=== PATIENT | female | born 1930 | race Caucasian/White ===

== ENCOUNTER → 2016-09-21 | Outpatient (CLI) | payer MEDICARE, OTHER | LOC: GMAB 15:00 | PROVIDERS: ATTEND Family Medicine | DX: D50.8 Other iron deficiency anemias (principal); E53.8 Deficiency of other specified B group vitamins; R41.9 Unspecified symptoms and signs involving cognitive functions and awareness; F03.91 Unspecified dementia, unspecified severity, with behavioral disturbance ==

== ENCOUNTER 2016-10-13 20:44 | Inpatient (IN) | payer MEDICARE, OTHER ==
[2016-10-13] MEDS ORDERED: NEOMYCIN-BACITRACIN-POLYMYXIN 0.9 GM UD TOP ONE (21:02)
--- NOTE | 2016-10-13 22:07 | ED.PDOC ---
History of Present Illness - General Chief Complaint: Neuro Symptoms/Deficits Stated Complaint: seizure Time Seen by Provider: 10/13/16 20:57 Source: patient, family, EMS, long term records Exam Limitations: clinical condition - History of Present Illness Initial Comments: Patient presents after having a witnessed seizure at the long term just before arrival. She was found unresponsive with tonic-clinic movements. Patient has a distant history of seizure activity with the last one being more than 5 years ago. The patient's daughter says that she has never been on anit- epileptics. Patient currently takes alprozolam daily, has a fentanyl patch, and two prescribed alcoholic drinks per day. She has routinely received these medications. No other complaints. Timing/Duration: 1 hour Severity: moderate Worsening Factors: nothing Associated Symptoms: denies symptoms Allergies/Adverse Reactions: Allergies Iodine Allergy (Mild, Verified 10/13/15 14:37) Rash Home Medications: Ambulatory Orders Allopurinol [Zyloprim] 100 mg PO DAILY 10/27/14 Amlodipine Besylate [Norvasc] 10 mg PO DAILY 10/27/14 Aspirin 325 mg PO QD 10/27/14 B-Complex Vitamins [Vitamin B Complex] 1 tab PO DAILY 10/27/14 Benazepril HCl 20 mg PO DAILY 10/27/14 Ferrous Gluconate [Fergon] 325 mg PO DAILY 10/27/14 Latanoprost 1 drop BOTH_EYES BEDTIME 10/27/14 Timolol Maleate (Ophth) [Timolol Maleate] 1 drop BOTH_EYES BID 10/27/14 Review of Systems - Review of Systems Constitutional: States: no symptoms reported EENTM: States: no symptoms reported Respiratory: States: no symptoms reported Cardiology: States: no symptoms reported Gastrointestinal/Abdominal: States: no symptoms reported Genitourinary: States: no symptoms reported Musculoskeletal: States: no symptoms reported Skin: States: no symptoms reported Neurological: States: see HPI Endocrine: States: no symptoms reported Hematologic/Lymphatic: States: no symptoms reported Past Medical History (General) - Patient Medical History Hx Seizures: No Hx Stroke: No Hx Asthma: No Hx of COPD: No Hx Cardiac Disorders: Yes Hx Congestive Heart Failure: Yes Hx Pacemaker: No Hx Hypertension: Yes Hx Diabetes: No Hx Gastroesophageal Reflux: No Hx Cancer: No Hx of HIV: No Hx Hepatitis C: No Hx MRSA: No - Vaccination History Hx Tetanus, Diphtheria Vaccination: No Hx Influenza Vaccination: No Hx Pneumococcal Vaccination: No - Social History Hx Tobacco Use: No Hx Alcohol Use: Yes Hx Substance Use: No Hx Substance Use Treatment: No Hx Depression: No Hx Physical Abuse: No Hx Emotional Abuse: No - Activities of Daily Living Half-Way/Assisted Living (if applicable):: [facility] - Female History Patient is a Female of Child Bearing Age (10 -59 yrs old): No Family Medical History - Family History Mother Family History: Unknown Living Status: Age at (years of age): 73 Hx Family Hypertension: Yes Hx Cardiac Disease: Yes Physical Exam - Physical Exam General Appearance: Other - confused but conversational Eye Exam: bilateral normal Ears, Nose, Throat: normal ENT inspection Neck: non-tender, full range of motion, supple Respiratory: lungs clear Cardiovascular/Chest: regular rate, rhythm Gastrointestinal/Abdominal: normal bowel sounds, non tender, soft Back Exam: normal inspection, no CVA tenderness Extremity: normal range of motion, non-tender, normal inspection Neurologic: physician in private practice II-XII nml as tested, no motor/sensory deficits, alert, other - oriented to person and town but doesn't know the year or that she is at the hospital. Her daughter says this is below her mental baseline Skin Exam: normal color Lymphatic: no adenopathy Progress - Progress Progress: 10/13/16 22:09 CT head showed no acute disease. Blood glucose 195. Patient admitted for observation. Laboratory Tests 10/13/16 20:39 WBC 9.2 RBC 4.33 Hgb 14.4 Hct 43.2 MCV 99.7 H MCH 33.2 H MCHC 33.3 RDW 13.4 Plt Count 403 H MPV 8.2 Absolute Neuts (auto) 7.40 H Absolute Lymphs (auto) 0.80 L Absolute Monos (auto) 0.90 H Absolute Eos (auto) 0.10 Absolute Basos (auto) 0.10 Neutrophils % 80.5 H Lymphocytes % 8.5 L Monocytes % 9.6 H Eosinophils % 0.8 L Basophils % 0.6 Sodium 131 L Potassium 3.2 L Chloride 93 L Carbon Dioxide 23 Anion Gap 18.2 H BUN 12 Creatinine 1.07 BUN/Creatinine Ratio 11.2 POC Glucose 195 H Random Glucose 224 H Serum Osmolality 269.4 L Calcium 9.2 Total Bilirubin 0.8 AST 40 ALT 24 Alkaline Phosphatase 111 Serum Total Protein 6.9 Albumin 3.8 Globulin 3.1 Albumin/Globulin Ratio 1.2 Lipase 21 L TSH 1.97 Thyroxine (T4) 6.06 L Salicylates < 4.0 Acetaminophen < 10.0 L - EKG/XRAY/CT CT Ordered: Yes Departure - Departure Clinical Impression: Seizure Disposition: Admit Patient Condition: Fair Departure Forms: ED Discharge - Pt. Copy, Patient Portal Self Enrollment Diet: other - as per hospitalist Activity: as per physical therapy Home Medications: Ambulatory Orders Allopurinol [Zyloprim] 100 mg PO DAILY 10/27/14 Amlodipine Besylate [Norvasc] 10 mg PO DAILY 10/27/14 Aspirin 325 mg PO QD 10/27/14 B-Complex Vitamins [Vitamin B Complex] 1 tab PO DAILY 10/27/14 Benazepril HCl 20 mg PO DAILY 10/27/14 Ferrous Gluconate [Fergon] 325 mg PO DAILY 10/27/14 Latanoprost 1 drop BOTH_EYES BEDTIME 10/27/14 Timolol Maleate (Ophth) [Timolol Maleate] 1 drop BOTH_EYES BID 10/27/14
[2016-10-13] MEDS ORDERED: ACETAMINOPHEN 325 MG TAB PO ONE (22:11)
--- NOTE | 2016-10-13 22:32 | HP ---
SUPERVISING PHYSICIAN: Krystian Galdamez MD HISTORY OF PRESENT ILLNESS: This is an 86 year-old female patient who lives at [facility]. About 8:00 PM the patient had a witnessed seizure. She was found unresponsive with tonic-clonic movements. The patient does have a remote history of greater than 30 years ago of seizure activity and according to the family the patient has never been on any medication for seizures. The patient currently takes scheduled Xanax daily. She also had taken hydrocodone every 4 hours scheduled for years and on 08/25/16 her hydrocodone was stopped and she was placed on a Fentanyl 25 mcg patch per the family. She has never done very well on the patch, although her neck pain is better her dementia seemed to be worse as well as her agitation to the point that they spoke with Dr. Landers and he discontinued the Fentanyl patch today and ordered scheduled hydrocodone again. Her last patch was given on September 09. It was due to be changed this morning, it was not changed and her hydrocodone was not restarted because they had not received the medication yet. It was also reported from the [facility] nursing staff that she gets 2 one ounce jiggers of rum mixed in root beer daily and they said she had been getting quite a bit more of that up until recently and they had been decreasing the amount of alcohol she got each day due to her Fentanyl patch. In the Emergency Room, the patient was postictal. Initially she would not communicate nor would she follow commands. Her sodium was 131, her potassium was 3.2, chloride 93, glucose 195, lipase 21, TSH normal at 1.97, thyroxine was low at 6.06. White count 9.2, hemoglobin 14.4 , hematocrit 43.2, platelet count 103,000. Neutrophils 80.5. Benzodiazepines were positive on her urine drug screen but her opiates were negative. CT of her head showed no acute abnormalities. I was called for admission to the hospital. PAST MEDICAL HISTORY: 1. Anxiety with depression. 2. Cervical disc disorder. 3. Chronic obstructive pulmonary disease. 4. Dementia. 5. Essential hypertension. 6. History of tobacco abuse. 7. Hypercholesterolemia. 8. Irritable bowel syndrome, diarrhea prominent type. 9. Iron-deficiency anemia. 10. Alcohol abuse. 11. Post concussion syndrome. PAST SURGICAL HISTORY: 1. Varicose vein surgery. 2. Hernia repair. 3. Hysterectomy. CURRENT MEDICATIONS: Per the EMR and awaiting verification. ALLERGIES: IODINE. FAMILY HISTORY: Positive for myocardial infarction. SOCIAL HISTORY: She lives at [facility]. She is , she has 3 children. She has a past history of cigarette smoking and quite in 1985. She has a past history of alcohol abuse and at this point she drinks 2 one-ounce drinks of rum daily at [facility]. REVIEW OF SYSTEMS: Unable to obtain due to patient's status. PHYSICAL EXAMINATION: VITAL SIGNS: She is afebrile. Heart rate 100, blood pressure 160/99, respiratory rate 18, 02 saturation 98%. She just recently had a seizure, just a few minutes ago her oxygen saturation dropped to 88%. GENERAL: This is an 86 year-old female patient who is lying in her hospital bed. Prior to this recent seizure she was lethargic but awake and she answered simple questions appropriately. She recognizes family members. HEENT: Normocephalic and atraumatic. Pupils are equal and reactive. During the seizure, her eyes were deviating up to the left but at this time they are equal and reactive. Oropharynx is clear. NECK: Supple without masses. There is no jugular venous distention. CHEST: Clear to auscultation bilaterally. Chest has equal rise and fall with inspiration and expiration. CARDIOVASCULAR: Regular rate and rhythm. ABDOMEN: Soft, nondisplaced, non-tender. Bowel sounds are positive. EXTREMITIES: No cyanosis, clubbing, or edema. NEUROLOGIC: As stated above in the general comments. LABORATORY AND FILMS: As per history of present illness. ASSESSMENT: 1. Seizure activity most likely due to withdrawal from opiates. 2. ETOH abuse in the past, presently on 2 drinks per day at the custodial. 3. Cervical disk disorder requiring scheduled pain medication recently changed from scheduled [place] to a Fentanyl patch. 4. Dementia. 5. Hypertension. 6. Hypokalemia. 7. Elevated blood sugar without a diagnosis of diabetes. PLAN: We will admit the patient to the hospital. Due to her recent seizure activity and postictal state, I will again place a Duragesic patch and when she is more alert, I will discontinue that and start [place] 5/325 every 6 hours. She also has p.r.n. Ativan for seizure activity. I will also start Keppra 500 b.i.d. I will start Protonix for ulcer prophylaxis and Lovenox for DVT prophylaxis. She will need to have her Ultram discontinued. She will need a close followup with neurology as well as Dr. Landers. I have discussed at length the patient's resuscitation status and the children are discussing if they would like to make her a DNR and they will let us know tomorrow. In the morning , I will do routine labs and will continue to monitor the patient closely and followup as needed. Dr. Galdamez is the collaborating physician available for consultation. #[id number] #[id number] [facility]
[2016-10-14] MEDS ORDERED: ALBUTEROL SULFATE 2.5 MG/3 ML VIAL NEB PRN (00:08)
[2016-10-14] MEDS ORDERED: levETIRAcetam 250 MG TAB PO SCH (00:30)
[2016-10-14] MEDS ORDERED: IV SET AND CAP CHANGE INJ INJ SCH (00:30)
[2016-10-14] MEDS ORDERED: HYDROcodone 5MG/APAP 325MG 1 EA TAB PO SCH ×2 (00:30→08:30)
[2016-10-14] MEDS ORDERED: levETIRAcetam INJ 100 MG/ML VIAL IVPB ONE ×3 (00:38→20:42)
[2016-10-14] MEDS ORDERED: SODIUM CHL 0.9% 100ML MINI-BAG 100 ML IVPB ONE (00:40)
[2016-10-14] MEDS: levETIRAcetam INJ 500 MG in SODIUM CHLORIDE 0.9% 100ML 100 ML IVPB SCH ×3 (00:43→20:53)
[2016-10-14] MEDS ORDERED: KCL 20MEQ/WATER FOR INJ 100ML 20 MEQ in PREMIX BAG 1 BAG IVPB ONE (00:52)
[2016-10-14] MEDS ORDERED: KCL 20MEQ/WATER FOR INJ 100ML 100 ML IVPB ONE (00:54)
[2016-10-14] MEDS ORDERED: fentaNYL PATCH 25 MCG/HR 1 EA PATCH TD SCH (01:00)
[2016-10-14] MEDS ORDERED: PANTOPRAZOLE SODIUM IV 40 MG VIAL IV SCH (01:00)
[2016-10-14] MEDS ORDERED: SODIUM CHLORIDE 0.9% 10 ML VIAL ONE (01:19)
[2016-10-14] MEDS ORDERED: SODIUM CHLORIDE 0.9% 10 ML VIAL IV PRN (07:51)
[2016-10-14] MEDS ORDERED: SODIUM CHLORIDE 0.9% 100ML 100 ML IVPB ONE ×2 (08:34→20:45)
[2016-10-14] MEDS ORDERED: [UNRECOGNIZED DRUG - OTHER] PO PRN (09:48)
[2016-10-14] MEDS ORDERED: DEXTROMETHORPHAN PO PRN (09:48)
[2016-10-14] MEDS ORDERED: DOXYLAMINE PO PRN (09:48)
[2016-10-14] MEDS ORDERED: POTASSIUM CHLORIDE 10 MEQ TAB PO ONE (12:00)
[2016-10-14] MEDS ORDERED: HYDROcodone 5MG/APAP 325MG 1 EA TAB PO ONE (12:00)
[2016-10-14] MEDS: FUROSEMIDE 40 MG TAB PO SCH (12:02)
[2016-10-14] MEDS: POTASSIUM CHLORIDE 10 MEQ TAB PO SCH (12:03)
--- NOTE | 2016-10-14 12:39 | PN ---
DATE: 10/14/16 SUPERVISING PHYSICIAN: Krystian Galdamez M.D. SUBJECTIVE: The patient is lying in her hospital bed. She is quite lethargic. She answers a few simple yes/no questions appropriately. She denies any pain, shortness of breath or abdominal pain. Nursing staff reports that the patient had no further seizures after her seizure about 12:30 this morning. OBJECTIVE: VITAL SIGNS: She is afebrile, heart rate 82, blood pressure 111/73, respiratory rate 18, O2 sat 94% on room air. GENERAL: This is an 86 year-old female patient lying in her hospital bed. She is in no acute distress. RESPIRATORY: Clear to auscultation bilaterally. CARDIAC: Regular rate and rhythm. ABDOMEN: Soft, nondistended, non-tender. Bowel sounds are positive. EXTREMITIES: No cyanosis, clubbing or edema. NEUROLOGIC: She is lethargic. She opens her eyes. She answers yes/no questions. LABORATORY: CBC is basically within normal limits. Sodium is slightly low at 134 but has improved since yesterday at 131, potassium 3.5, chloride 100, BUN 12 , creatinine 0.64, glucose 87. Urine drug screen from last night is negative opiates. All other labs and films have been reviewed via the EMR. ASSESSMENT: 1. Seizure activity most likely due to withdrawal from opiates. 2. ETOH abuse in the past, presently on 2 drinks per day at the senior care. 3. Cervical disc disorder requiring scheduled pain medication recently changed from scheduled [place] to a Fentanyl patch, and then the Fentanyl patch was discontinued and the [place] was only started as a p.r.n. medication. The patient did not receive any [place]. She has been on scheduled [place] for many, many years. 4. Dementia. 5. Hypertension. 6. Hypokalemia. 7. Elevated blood sugars without a diagnosis of diabetes that has now resolved. PLAN: The patient has had no further seizure activity. I have given her a dose of Keppra and she will continue on that, and it will have to be increased per guidelines. She will also need to see a neurologist at some point. At this point, she has on a Fentanyl patch, but hopefully she will be awake enough that we can start her on scheduled [place]. If she is able to take her scheduled [place] at noon, we will discontinue the Fentanyl patch 1 hour after that. I will also give her some p.o. potassium at that time. Her A1c is still pending, although at this point I think her elevated blood sugars was a stress reaction yesterday. With the small amount of alcohol she was consuming at the senior care, I am not sure if we need to be concerned about withdrawals, but she usually gets 1 ounce of rum at 3:00 PM as well as 8:00 PM. She does have Ativan ordered, so we will just have to watch the patient to make sure that there are no alcohol withdrawal symptoms as she has been drinking routinely for many, many years. Repeat some lab in the morning. As she wakes up we will need to frequently ambulate her. I will order physical therapy for Sunday. Otherwise we will continue to monitor the patient closely and followup as needed. Dr. Galdamez is the collaborating physician available for consultation. #[id number] [facility]
[2016-10-14] MEDS ORDERED: REMOVE OLD PATCH TOP ONE (13:00)
[2016-10-14] MEDS ORDERED: HYDROcodone 5MG/APAP 325MG 1 EA TAB ONE (16:41)
[2016-10-14] MEDS: HYDROcodone 5MG/APAP 325MG 1 EA TAB PO SCH (18:02)
[2016-10-14] MEDS: SODIUM CHLORIDE 0.9% (FLUSH) 10 ML SYG IV PRN (20:51)
[2016-10-14] MEDS: PANTOPRAZOLE SODIUM IV 40 MG VIAL IV SCH (20:52)
[2016-10-14] MEDS: TIMOLOL BOTH_EYES SCH (20:54)
[2016-10-14] MEDS: LATANOPROST 0.005% BOTH_EYES SCH (20:54)
[2016-10-14] MEDS: DORZOLAMIDE BOTH_EYES SCH (20:54)
[2016-10-14] MEDS: ALPRAZolam 0.25 MG TAB PO SCH (20:54)
[2016-10-14] MEDS: OPTH BOTH_EYES SCH (20:54)
[2016-10-14] MEDS: SIMVASTATIN 20 MG TAB PO SCH (20:54)
[2016-10-14] MEDS: DONEPEZIL HCL 5 MG TAB PO SCH (21:00)
[2016-10-15] MEDS: HYDROcodone 5MG/APAP 325MG 1 EA TAB PO SCH ×5 (02:47→20:44)
[2016-10-15] MEDS ORDERED: ASPIRIN (CHEWABLE) 81 MG TAB ONE (07:16)
[2016-10-15] MEDS ORDERED: ENALAPRIL MALEATE 5 MG TAB ONE (07:16)
[2016-10-15] MEDS ORDERED: FOLIC ACID 1 MG TAB ONE (07:16)
[2016-10-15] MEDS ORDERED: CETIRIZINE HCL 10 MG TAB PO ONE (07:16)
[2016-10-15] MEDS ORDERED: amLODIPine BESYLATE 5 MG TAB ONE (07:17)
[2016-10-15] MEDS ORDERED: ALLOPURINOL 100 MG TAB ONE (07:17)
[2016-10-15] MEDS ORDERED: FLUoxetine HCL 20 MG CAP ONE (07:17)
[2016-10-15] MEDS: POTASSIUM CHLORIDE 10 MEQ TAB PO SCH ×3 (07:46→12:43)
--- NOTE | 2016-10-15 08:07 | PCM.CORE ---
Physician DVT/VTE - Prophylaxis Currently: Patient already on anticoagulation therapy - Nurse DVT Assessment & Total Each Risk Factor Represents 3 Points: Age over 75 years DVT Assessment Score: 3 - 5 or more Very High Risk Treatments: Early Ambulation *, Sequential Compression Device
[2016-10-15] MEDS ORDERED: levETIRAcetam INJ 100 MG/ML VIAL IVPB ONE (09:30)
[2016-10-15] MEDS: ENALAPRIL MALEATE 5 MG TAB PO SCH (09:33)
[2016-10-15] MEDS: FLUoxetine HCL 20 MG CAP PO SCH (09:33)
[2016-10-15] MEDS: ASPIRIN (CHEWABLE) 81 MG TAB PO SCH (09:34)
[2016-10-15] MEDS: amLODIPine BESYLATE 5 MG TAB PO SCH (09:34)
[2016-10-15] MEDS: ALLOPURINOL 100 MG TAB PO SCH (09:34)
[2016-10-15] MEDS: FUROSEMIDE 40 MG TAB PO SCH ×2 (09:34→12:43)
[2016-10-15] MEDS: FOLIC ACID 1 MG TAB PO SCH (09:34)
[2016-10-15] MEDS: CETIRIZINE HCL 10 MG TAB PO SCH (09:35)
[2016-10-15] MEDS: ALPRAZolam 0.25 MG TAB PO SCH ×2 (09:35→20:43)
[2016-10-15] MEDS: TIMOLOL BOTH_EYES SCH ×2 (09:35→20:44)
[2016-10-15] MEDS: DORZOLAMIDE BOTH_EYES SCH ×2 (09:35→20:44)
[2016-10-15] MEDS: levETIRAcetam INJ 500 MG in SODIUM CHLORIDE 0.9% 100ML 100 ML IVPB SCH (09:39)
[2016-10-15] MEDS ORDERED: SODIUM CHLORIDE 0.9% 100ML 100 ML IVPB ONE (09:40)
--- NOTE | 2016-10-15 10:23 | RAD ---
EXAM DESCRIPTION: Foot,Right 2 Views CLINICAL HISTORY: 86 years, Female, swollen and painful with weight bearing COMPARISON: None. FINDINGS: Two views the RIGHT foot were performed. A nondisplaced but mildly distracted fracture passes transversely through the base of the RIGHT fifth metatarsal. The bones are osteopenic. No additional fracture is seen. Hallux valgus is noted at the first RIGHT MTP joint. Enthesopathy projects off the calcaneus at the insertion site of the plantar aponeurosis. IMPRESSION: Nondisplaced, mildly distracted fracture at the base of the RIGHT fifth metatarsal. Osteopenia. Electronically signed by: Idalia Conner MD 10/15/2016 10:22 AM ADJUNCT PROFESSOR
[2016-10-15] MEDS ORDERED: THIAMINE HCL INJ 100 MG/ML VIAL IV SCH (10:30)
[2016-10-15] MEDS ORDERED: SODIUM CHLORIDE 0.9% 50ML 50 ML ONE (11:02)
[2016-10-15] MEDS ORDERED: THIAMINE HCL INJ 100 MG/ML VIAL ONE (11:02)
[2016-10-15] MEDS: THIAMINE HCL INJ 100 MG in SODIUM CHLORIDE 0.9% 50ML 50 ML IVPB SCH (11:43)
--- NOTE | 2016-10-15 11:51 | PN ---
DATE: 10/15/16 SUBJECTIVE: The patient is lying in the bed, head elevated. She ate much better this morning for breakfast and at this time states she is not hungry because she ate so well for breakfast. She apparently has not been eating well for a number of days. No further seizure activities. Her condition is discussed at length with the daughter who is visiting. The patient is currently being cared for at [facility]. She is ambulating but will require some special observation for safety of ambulation to help reduce risk and may require ambulations with a walker. OBJECTIVE: Afebrile, pulse 66, blood pressure 114/73, pulse oximetry 97% on room air. The patient is generally fairly alert at this time, though still has some difficulty knowing where she is at, what time it is, and has difficulty even remembering the name of her daughter. LUNGS: Generally clear. ABDOMEN: Soft. No organomegaly noted. Foot seems to be tender with the patient describing it primarily over the dorsum of the foot medially over the big toe. X-ray is performed of the foot because of the discomfort noted while walking and there is a small slightly malunioned old fracture of the proximal portion of the fifth metatarsal laterally on the foot. No evidence of ecchymosis, bruising or even significant tenderness upon palpation over the area. This was discussed with family. ASSESSMENT: 1. Acute seizure activity possibly secondary to chronic opioid withdrawal symptoms. 2. Chronic ethanol use in the past presently on 2 doses of either Vodka or rum at the group home. 3. Chronic pain with cervical disc disorder with scoliosis of the cervical spine having recently had Fentanyl patches stopped and being switched to scheduled [place] but some of the doses having been missed. 4. Chronic dementia showing some slight worsening. 5. History of hypertension. 6. History of hypokalemia. 7. Hyperglycemia, continue to be observed. PLAN: Will continue with PT evaluation in the morning. Suggest decreasing the ethanol at the group home which she mixes with root beer. Encourage Boost to help with increased caloric intake. She will have followup with Dr. Landers at [facility]. Consider discussion with neurologist tomorrow regarding her ongoing care. Keppra is stopped from the parenteral route and switched to the p.o. route of 500 b.i.d. Suggest a trial of walking with a walker in an attempt to prevent falls. Close observation. Anticipate return to [facility] tomorrow as stable. #[id number] [facility]
[2016-10-15] MEDS: SIMVASTATIN 20 MG TAB PO SCH (20:43)
[2016-10-15] MEDS: levETIRAcetam 250 MG TAB PO SCH (20:43)
[2016-10-15] MEDS: LATANOPROST 0.005% BOTH_EYES SCH (20:44)
[2016-10-15] MEDS: DONEPEZIL HCL 5 MG TAB PO SCH (20:44)
[2016-10-15] MEDS: PANTOPRAZOLE SODIUM IV 40 MG VIAL IV SCH (20:44)
[2016-10-15] MEDS: OPTH BOTH_EYES SCH (20:44)
[2016-10-15] MEDS: SODIUM CHLORIDE 0.9% (FLUSH) 10 ML SYG IV PRN (20:45)
--- NOTE | 2016-10-16 00:56 | CT ---
EXAM DESCRIPTION: Head CLINICAL HISTORY: seizure-new onset COMPARISON: March 04, 2016 TECHNIQUE: Contiguous axial images of the brain were obtained without the administration of intravenous contrast. FINDINGS: There is no acute intracranial hemorrhage or mass effect. Areas of low attenuation in the periventricular and subcortical white matter are nonspecific but suggestive of small vessel disease. There is generalized atrophy. Ventricular system is within normal limits. There is adequate stuart-white matter differentiation. There is no skull fracture. Abnormal opacification of the posterior right maxillary sinus compatible with sinusitis changes. There is soft tissue swelling within the frontal and left lateral scalp. IMPRESSION: No acute intracranial abnormalities. Electronically signed by: Mihir Fragoso MD 10/13/2016 9:36 PM CHEMICAL PRODUCTION MACHINE OPERATOR
[2016-10-16] MEDS: POTASSIUM CHLORIDE 10 MEQ TAB PO SCH ×5 (07:55→11:47)
[2016-10-16] MEDS ORDERED: THIAMINE HCL INJ 100 MG/ML VIAL ONE (08:49)
[2016-10-16] MEDS ORDERED: SODIUM CHLORIDE 0.9% 50ML 50 ML ONE (08:51)
[2016-10-16] MEDS: ALPRAZolam 0.25 MG TAB PO SCH (08:57)
[2016-10-16] MEDS: levETIRAcetam 250 MG TAB PO SCH (09:00)
[2016-10-16] MEDS: HYDROcodone 5MG/APAP 325MG 1 EA TAB PO SCH ×2 (09:00→15:22)
[2016-10-16] MEDS: FOLIC ACID 1 MG TAB PO SCH (09:00)
[2016-10-16] MEDS: ASPIRIN (CHEWABLE) 81 MG TAB PO SCH (09:00)
[2016-10-16] MEDS: ENALAPRIL MALEATE 5 MG TAB PO SCH (09:01)
[2016-10-16] MEDS: amLODIPine BESYLATE 5 MG TAB PO SCH (09:02)
[2016-10-16] MEDS: ALLOPURINOL 100 MG TAB PO SCH (09:02)
[2016-10-16] MEDS: THIAMINE HCL INJ 100 MG in SODIUM CHLORIDE 0.9% 50ML 50 ML IVPB SCH (09:02)
[2016-10-16] MEDS: TIMOLOL BOTH_EYES SCH (09:13)
[2016-10-16] MEDS: DORZOLAMIDE BOTH_EYES SCH (09:13)
[2016-10-16] MEDS: CETIRIZINE HCL 10 MG TAB PO SCH (09:46)
[2016-10-16] MEDS: FLUoxetine HCL 20 MG CAP PO SCH (09:46)
[2016-10-16] MEDS: FUROSEMIDE 40 MG TAB PO SCH ×2 (09:46→11:47)
[2016-10-16 11:07] VITALS: TEMP 97.8
[2016-10-16 15:00] VITALS: BP 111/71; O2SAT 96
[2016-10-16] MEDS ORDERED: ACETAMINOPHEN 325 MG TAB PO PRN (15:59)
[2016-10-16] MEDS ORDERED: ASPIRIN/ACETAMINOPHEN/CAFFEINE 1 EA TAB PO PRN (15:59)
[2016-10-16] MEDS ORDERED: PANTOPRAZOLE SODIUM TAB 40 MG PO SCH (16:30)
--- NOTE | 2016-10-16 17:44 | DS ---
DISCHARGE DIAGNOSIS: 1. Acute seizure activity possibly secondary to chronic opioid withdrawal symptoms. 2. Chronic ethanol use with a couple of doses daily of Vodka or Rum at the halfway encouraged to decrease dosings as possible. 3. Chronic pain with cervical disc disorder with scoliosis of the cervical spine having been on Fentanyl patches as well as frequent [place] use being reduced in frequency and quantity of opioids being given to continue to control the underlying pain. 4. Chronic dementia with significant memory deficits. 5. Acute fracture proximal fifth metatarsal right foot. 6. History of hypertension. 7. History of hypokalemia on supplements. 8. Mild hyperglycemia. HISTORY OF PRESENT ILLNESS: This 86 year-old white female was admitted to the hospital from [facility] where she was found to have a witnessed seizure at approximately 8:00 PM on the night of admission. She became quite postictal with tonic clonic movements during the seizure and was treated initially with Benzodiazepines. It is of note that some of her [place] had been stopped and in fact some of her Fentanyl had also been stopped, and she had missed a few doses. She was not complaining of any pain when she was able to become more alert and so will continue with a pain management program after the seizure disorder was stabilized after a couple of days in the hospital. The patient was admitted to the hospital because of the new onset of the seizure activity in an effort to continue the evaluation to make sure there was no other etiologies noted. LABORATORY: White count 9,200, hemoglobin 12.8. Chemistry shows potassium was down to 3.1 with supplements given, BUN was 13, creatinine 0.61 at discharge. CO2 of 25, osmolality 272 and going up. Calcium 8.6, magnesium 1.1. Liver enzymes otherwise normal except for a low protein of 5.3 and an albumin 2.9. TSH normal at 1.97, T4 low at 6. Urinalysis shows ketonuria, small amount of hematuria and no culture obtained. Toxicology showed urine drug screen positive for Benzodiazepines. Head CT was performed in the Emergency Room and showed no acute intracranial abnormalities. Foot x-ray was performed because of a complaint of pain and did show a recent proximal right metatarsal fracture which will be treated conservatively. HOSPITAL COURSE: The patient was much more alert and communicative and cordial at the time of her discharge. She still has a significant memory deficit which needs to be carefully monitored to prevent the patient falling and injuring herself significantly. The patient was improved to the point that she very much wished to go home to [facility] on the day of discharge. PLAN: The patient is discharged to [facility], Dr. Landers's service. She will continue with routine halfway orders. Decrease ethanol dosing to only 1/2 shot instead of a whole shot twice daily mixed with root beer or beverage of choice at the time of choice. She will start Keppra 500 mg b.i.d. for the next month and if no further seizures and otherwise stable, consider stopping. She will continue with potassium 10 mEq twice daily. Try some Boost after meals at least 1 to 2 times a day to help caloric intake and protein nutrition. Physical therapy encouraged to continue with walking utilizing a walker to help prevent falling in an effort to increase strength. Continue with [place] 5/325 p.o. t.i.d. on a regular basis and see if this will begin to help the significant chronic pain issues that the patient presents with. Return if not improving. See Dr. Landers in the next 2 weeks. Avoid falls. #[id number] [facility]
== END 2016-10-16 16:59 | DRG 897 ==
LOC: ER 20:44 → OBSVTOIN 22:31 → MS 22:31
PROVIDERS: ADMIT Family Medicine; ATTEND Emergency Medicine
DX: F11.23 Opioid dependence with withdrawal (principal); R56.9 Unspecified convulsions; T40.2X5A Adverse effect of other opioids, initial encounter; G89.29 Other chronic pain; M41.82 Other forms of scoliosis, cervical region; F03.90 Unspecified dementia, unspecified severity, without behavioral disturbance, psychotic disturbance, mood disturbance, and anxiety; I10 Essential (primary) hypertension; E87.6 Hypokalemia; R73.9 Hyperglycemia, unspecified; S92.351A Displaced fracture of fifth metatarsal bone, right foot, initial encounter for closed fracture; X58.XXXA Exposure to other specified factors, initial encounter; F41.8 Other specified anxiety disorders; J44.9 Chronic obstructive pulmonary disease, unspecified; E78.00 Pure hypercholesterolemia, unspecified; K58.0 Irritable bowel syndrome with diarrhea; D50.9 Iron deficiency anemia, unspecified; F10.10 Alcohol abuse, uncomplicated; Z91.041 Radiographic dye allergy status; Y99.9 Unspecified external cause status; Y93.9 Activity, unspecified; Y92.129 Unspecified place in nursing home as the place of occurrence of the external cause; Z79.82 Long term (current) use of aspirin; Z79.899 Other long term (current) drug therapy; Z87.891 Personal history of nicotine dependence

== ENCOUNTER → 2016-12-13 | Outpatient (CLI) | payer MEDICARE, OTHER | LOC: GT 08:50 | PROVIDERS: ATTEND Family Medicine | DX: I10 Essential (primary) hypertension (principal); R27.8 Other lack of coordination ==

== ENCOUNTER → 2016-12-18 | Outpatient (CLI) | payer MEDICARE, OTHER | END | disposition home or self-care (01) | LOC: GT 07:29 | PROVIDERS: ATTEND Family Medicine | DX: I10 Essential (primary) hypertension (principal); D50.9 Iron deficiency anemia, unspecified; E78.00 Pure hypercholesterolemia, unspecified; E78.5 Hyperlipidemia, unspecified ==

== ENCOUNTER → 2016-12-27 | Outpatient (CLI) | payer MEDICARE, MEDICAID | END | disposition home or self-care (01) | LOC: GT 16:18 | PROVIDERS: ATTEND Family Medicine | DX: R19.7 Diarrhea, unspecified (principal) ==

== ENCOUNTER → 2017-02-23 | Outpatient (CLI) | payer MEDICARE, MEDICAID | LOC: GT 07:18 | PROVIDERS: ATTEND Family Medicine | DX: D50.9 Iron deficiency anemia, unspecified (principal); I10 Essential (primary) hypertension; E78.00 Pure hypercholesterolemia, unspecified; N39.0 Urinary tract infection, site not specified ==

== ENCOUNTER → 2017-02-27 | Outpatient (CLI) | payer MEDICARE, MEDICAID | LOC: GMAB 16:55 | PROVIDERS: ATTEND Family Medicine | DX: R19.7 Diarrhea, unspecified (principal); R63.0 Anorexia; I10 Essential (primary) hypertension ==

== ENCOUNTER → 2017-04-12 | Outpatient (CLI) | payer MEDICARE, MEDICAID | END | disposition home or self-care (01) | LOC: GT 12:17 | PROVIDERS: ATTEND Family Medicine | DX: R19.7 Diarrhea, unspecified (principal) ==

== ENCOUNTER → 2017-04-13 | Outpatient (CLI) | payer MEDICARE, MEDICAID | END | disposition home or self-care (01) | LOC: GT 05:35 | PROVIDERS: ATTEND Internal Medicine Gastroenterology | DX: R19.7 Diarrhea, unspecified (principal) ==

== ENCOUNTER → 2017-06-13 | Outpatient (CLI) | payer MEDICARE, MEDICAID | END | disposition home or self-care (01) | LOC: GT 05:44 | PROVIDERS: ATTEND Family Medicine | DX: I10 Essential (primary) hypertension (principal) | CPT/HCPCS: 36415; 80053; 85025; P9603 ==

== ENCOUNTER → 2017-08-10 | Outpatient (CLI) | payer MEDICARE, MEDICAID | END | disposition home or self-care (01) | LOC: GT 09:52 | PROVIDERS: ATTEND Family Medicine | DX: J11.2 Influenza due to unidentified influenza virus with gastrointestinal manifestations (principal) ==

== ENCOUNTER → 2017-08-16 | Outpatient (CLI) | payer MEDICARE, MEDICAID | END | disposition home or self-care (01) | LOC: GMA 17:24 | PROVIDERS: ATTEND Family Medicine | DX: D64.9 Anemia, unspecified (principal) ==

== ENCOUNTER → 2017-09-03 | Outpatient (CLI) | payer MEDICARE, MEDICAID | END | disposition home or self-care (01) | LOC: GMAB 16:38 | PROVIDERS: ATTEND Family Medicine | DX: D50.0 Iron deficiency anemia secondary to blood loss (chronic) (principal); D47.3 Essential (hemorrhagic) thrombocythemia ==

== ENCOUNTER → 2017-09-05 | Outpatient (CLI) | payer MEDICARE, MEDICAID | END | disposition home or self-care (01) | LOC: GT 18:21 | PROVIDERS: ATTEND Family Medicine | DX: D50.9 Iron deficiency anemia, unspecified (principal) ==

== ENCOUNTER → 2017-09-12 | Outpatient (CLI) | payer MEDICARE, MEDICAID | LOC: GT 07:53 | PROVIDERS: ATTEND Family Medicine | DX: E46 Unspecified protein-calorie malnutrition (principal); D50.9 Iron deficiency anemia, unspecified ==

== ENCOUNTER → 2017-12-12 | Outpatient (CLI) | payer MEDICARE, OTHER, MEDICAID | LOC: GT 09:24 | PROVIDERS: ATTEND Family Medicine | DX: D50.9 Iron deficiency anemia, unspecified (principal); R63.4 Abnormal weight loss; E87.6 Hypokalemia; E56.8 Deficiency of other vitamins; M10.9 Gout, unspecified; E78.00 Pure hypercholesterolemia, unspecified; E78.5 Hyperlipidemia, unspecified ==

== ENCOUNTER → 2018-10-02 | Outpatient (CLI) | payer MEDICARE, OTHER, MEDICAID | LOC: GT 15:16 | PROVIDERS: ATTEND Internal Medicine | DX: N39.0 Urinary tract infection, site not specified (principal) ==